=== PATIENT | female | born 1980 | race Caucasian/White ===

== ENCOUNTER 2019-01-02 09:14 | Emergency (ER) | payer OTHER ==
[2019-01-02 09:59] VITALS: BP 150/79; PULSE 76; RESP 16; TEMP 97.9
[2019-01-02] MEDS ORDERED: LIDOCAINE 1% INJ 10MG/ML (20 ML MDV) SQ ONE (10:59)
--- NOTE | 2019-01-02 11:02 | ED ---
General Adult HPI - General Chief complaint: Wound/Laceration Stated complaint: lt hand lac Time Seen by Provider: 01/02/19 10:49 Source: patient Mode of arrival: ambulatory Limitations: no limitations - History of Present Illness Initial comments: Patient is 38-year-old male presents emergency Department with a laceration on her left hand between the first and second digit. Patient reports incident occurred today when she was attempting to open up a box present with a knife when it slipped and lacerated her hand. Patient reports tetanus status is up-to-date. Patient denies numbness and tingling. Patient reports limited range of motion due to pain. Patient is not on blood thinners. Patient denies taking medication to alleviate the pain. - Related Data Allergies Allergy/AdvReac Type Severity Reaction Status Date / Time cefuroxime [From Ceftin] Allergy Unknown Verified 01/02/19 09:59 Review of Systems ROS Statement: Those systems with pertinent positive or pertinent negative responses have been documented in the HPI. ROS Other: All systems not noted in ROS Statement are negative. Past Medical History Past Medical History: GERD/Reflux Additional Past Medical History / Comment(s): MIGRAINE History of Any Multi-Drug Resistant Organisms: None Reported Past Surgical History: Tonsillectomy Past Psychological History: Anxiety, Depression Smoking Status: Never smoker Past Alcohol Use History: None Reported Past Drug Use History: None Reported General Exam - General Exam Comments Initial Comments: General: Well-developed well-nourished distress HEENT: Normocephalic/atraumatic, PERLL, pharynx erythema, swallowing well, EAC no erythema, no exudates, TM clear, no cervical lymph nodes Neck: Supple, nontender, trachea midline Chest/Lungs: Normal respirations, no signs of respiratory distress clear to auscultation bilaterally no wheezes, rales, rhonchi Cardiac: Regular rate and rhythm, normal S1-S2, no murmurs rubs or gallops Abdomen/GI: Soft nontender, bowel sounds equal or quadrant x4, no guarding, no rebound no CVA tenderness Musculoskeletal: Normal capillary refill, bilateral. +2 radial and ulnar pulses, bilaterally. Limited range of motion due to pain. No erythema, swelling or skin discoloration on left hand.. Skin: Warmth, no rashes or lesions, no cyanosis or diaphoresis Neurologic: AAO x 3, CN 2-12 intact, Psychiatric: Mood and affect normal, judgment normal Limitations: no limitations Course Vital Signs 01/02/19 09:56 Temperature 97.9 F Pulse Rate 76 Respiratory 16 Rate Blood Pressure 150/79 O2 Sat by Pulse 100 Oximetry Procedures - Laceration Laceration #1 Consent Obtained: verbal consent Indication: laceration Site: hand (Left hand between first and second digit.) Size (cm): 1 Description: linear Depth: simple, single layer Anesthetic Used: lidocaine 1% Anesthesia Technique: local infiltration Amount (mls): 5 Pre-repair: irrigated extensively Type of Sutures: nylon Size of Sutures: 4-0 Number of Sutures: 2 Technique: simple, interrupted Patient Tolerated Procedure: well Medical Decision Making - Medical Decision Making Patient is a 38-year-old who presents emergency Department for laceration on the left hemidiaphragm secondary to. Patient reports her tetanus status is up-to-date so it was not administered. Laceration site was repaired with 2 sutures. Patient tolerated procedure well. Patient advised to return to emergency department for suture removal in 10-14 days. Patient is to return to emergency departments if symptoms worsen. Patient advised to follow primary care. Discussed with physician. Patient advised to follow proper wound care instructions Disposition Clinical Impression: Laceration Disposition: HOME SELF-CARE Condition: Stable Instructions (If sedation given, give patient instructions): Care For Your Stitches (DC), Laceration (DC) Additional Instructions: Please return to emergency department after 10 days for suture removal. Please follow-up with primary care. Please return to emergency department if symptoms worsen. Please follow proper wound care structures. Is patient prescribed a controlled substance at d/c from ED?: No Referrals: Allison Arroyo MD [Primary Care Provider] - 1-2 days Time of Disposition: 11:02
== END 2019-01-02 12:31 | disposition home or self-care (01) ==
LOC: EC 09:14
DX: S61.412A Laceration without foreign body of left hand, initial encounter (principal); Z88.1 Allergy status to other antibiotic agents; W26.0XXA Contact with knife, initial encounter; Y93.89 Activity, other specified
CPT/HCPCS: 99282; 12001; J2001